=== PATIENT | female | born 1930 | race Caucasian/White ===

== ENCOUNTER 2017-06-04 13:04 | Inpatient (IN) | payer MEDICARE, OTHER ==
[~2017-06-04] VITALS: Ht 162.6 cm; Wt 94.9 kg
[~2017-06-04 13:04] MED LIST: AMLO-147 PO; ASPI81TA3 PO; CALC-176 PO; CHOL500010 PO; DULO30CA47 PO; FURO40TA4 PO; GABA100C14 PO; HIPR1 PO; HYDR-906 PO; INSU100I31 SQ; LINA290C PO; LIRA0.6P SQ; METO2.5T12 PO; MIRA50TA PO; NALO25TA PO; NEBI5TAB9 PO; NIT4 SL; NOVO3I SC; OMEP20CA16 PO; POTA20TA96 PO
[2017-06-04] MEDS ORDERED: CEFEPIME 2GM/50 ML (PMX) 50 ML IVPB STA (14:52)
[2017-06-04] MEDS ORDERED: SODIUM CHLORIDE 0.9% 1L BAG IV* STA (14:52)
[2017-06-04] MEDS ORDERED: VANCOMYCIN 1 GM (PMX) 250 ML IVPB ONE (15:00)
[2017-06-04] MEDS ORDERED: LACT10SO5 PO (15:21)
[2017-06-04] MEDS ORDERED: BENA10TA48 PO (15:22)
[2017-06-04] MEDS ORDERED: CLON0.2T5 PO (15:23)
[2017-06-04] MEDS ORDERED: ALPR0.254 PO (15:24)
[2017-06-04] MEDS ORDERED: INSU100I31 SQ (15:26)
[2017-06-04 15:28] LABS: BASOPHILS % 0.6 % (0.0-2.0); EOSINOPHILS # 0.2 10^3/ul (0.0-0.5); EOSINOPHILS % 3.5 % (0.0-7.0); HEMATOCRIT 37.1 % (37.0-47.0); HEMOGLOBIN 12.1 g/dl (12.0-16.0); LYMPHOCYTES % 37.7 % (15.0-51.0); MEAN CORPUSCULAR HEMOGLOBIN 26.4 pg (29.0-33.0); MEAN CORPUSCULAR HGB CONC 32.6 g/dl (32.0-37.0); MEAN PLATELET VOLUME 10.9 fl (7.4-10.4); MONOCYTE # 0.3 10^3/ul (0.3-0.9); MONOCYTES % 6.3 % (0.0-11.0); NEUTROPHIL # 2.7 10^3/ul (1.6-7.5); NEUTROPHILS % 51.5 % (39.0-77.0); PLATELET COUNT 149 10^3/UL (140-415); RED BLOOD COUNT 4.58 10^6/ul (4.20-5.40); RED CELL DISTRIBUTION WIDTH 14.8 % (11.5-14.5); WHITE BLOOD COUNT 5.2 10^3/ul (4.8-10.8)
[2017-06-04 15:43] LABS: ADD UMIC YES; INR 1.02; PROTIME 13.4 Sec (12.2-14.2); UR ASCORBIC ACID NEGATIVE (NEGATIVE); UR BACTERIA MODERATE /HPF (NONE SEEN); UR BILIRUBIN (Dip) NEGATIVE (NEGATIVE); UR BLOOD (Dip) 1+ mg/dL (NEGATIVE); UR CLARITY CLOUDY (CLEAR); UR COLOR YELLOW (YELLOW); UR GLUCOSE (Dip) 1+ mg/dL (NEGATIVE); UR KETONES (Dip) NEGATIVE (NEGATIVE); UR LEUKOCYTE ESTERASE (Dip) 3+ Leu/ul (NEGATIVE); UR NITRITE (Dip) NEGATIVE (NEGATIVE); UR RBC 8 /HPF (0-5); UR SPECIFIC GRAVITY (Dip) 1.014 (1.003-1.030); UR TOTAL PROTEIN (Dip) 2+ mg/dl (NEGATIVE); UR UROBILINOGEN (Dip) 1+ mg/dL (NEGATIVE)
[2017-06-04 15:44] LABS: PARTIAL THROMBOPLASTIN TIME 32.2 Sec (25.0-35.0)
[2017-06-04 15:48] LABS: LACTIC ACID 1.5 mmol/L (0.5-2.0)
[2017-06-04 15:50] LABS: ALANINE AMINOTRANSFERASE 30 IU/L (13-69); ALBUMIN 3.2 g/dl (3.3-4.9); ALBUMIN/GLOBULIN RATIO 0.78; ALKALINE PHOSPHATASE 101 IU/L (42-121); ANION GAP 10 (8-16); ASPARTATE AMINO TRANSFERASE 29 IU/L (15-46); BILIRUBIN,INDIRECT 0.3 mg/dl (0-1.1); BILIRUBIN,TOTAL 0.3 mg/dl (0.2-1.3); BLOOD UREA NITROGEN 14 mg/dl (7-20); CALCIUM 8.8 mg/dl (8.4-10.2); CARBON DIOXIDE 29 mmol/L (21-31); CHLORIDE 103 mmol/L (97-110); GLUCOSE 247 mg/dl (70-220); POTASSIUM 4.4 mmol/L (3.5-5.1); SODIUM 138 mmol/L (135-144); TOTAL PROTEIN 7.3 g/dl (6.1-8.1)
[2017-06-04 16:01] LABS: TROPONIN-I < 0.012 ng/ml (0.00-0.12)
--- NOTE | 2017-06-04 16:05 | RADRPT ---
PROCEDURE: CT Brain without contrast. CLINICAL INDICATION: Acute mental status changes TECHNIQUE: A CT of the brain was performed on a [employer] 64-slice CT scanner utilizing axial imaging from the skull base through the vertex without IV contrast. Multiplanar reformatted images were made. Images were reviewed on a PACS workstation. The CTDIvol is 44.68 mGy and the DLP is 720 .23 mGycm. One of the following 3 does reduction techniques were used during this CT examination: 1) Automated exposure control 2) Adjustment of the mA +/- kV according to patient size or 3) Use of iterative reconstruction technique COMPARISON: 08/17/2016 CT brain FINDINGS: There is no intracranial hemorrhage, mass effect, or midline shift. No extra-axial fluid collection is seen. The ventricles and sulci are age appropriate. Mild diffuse volume loss is present. Mild de creased attenuation is present in the bilateral centrum semiovale and periventricular white matter c ompatible with mild chronic microvascular ischemic disease. Again noted in the right sylvian fissure is a focus of fatty attenuation measuring 8 mm AP by 10 mm transverse by 7 mm in superior inferior dimensions. 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 Mild vascular calcifications are present of the bilateral intracranial internal carotid ar teries and the vertebral arteries. The visualized scalp and calvarium are normal. The bilateral orbits are normal. The bilateral parana weston sinuses, mastoid air cells and middle ear cavities are clear. IMPRESSION: 1. No evidence of acute intracranial hemorrhage, infarcts, or acute intracranial pathology. 2. Stable right sylvian fissure intracranial lipoma measuring 8 mm AP by 10 mm transverse by 7 mm i n superior inferior dimensions. 3. Mild chronic microvascular ischemic disease and diffuse volume loss. 4. Mild atherosclerotic vascular disease RPTAT: HDC .Suha Kinsey MD, Date Time Electronically viewed and signed by .Suha Kinsey MD, MD on 06/04/2017 16:05 .C/
--- NOTE | 2017-06-04 16:29 | RADRPT ---
PROCEDURE: XR Chest 1 view. CLINICAL INDICATION: Shortness of breath. TECHNIQUE: AP views of the chest were obtained. COMPARISON: August 24, 2016 FINDINGS: The heart is large. Calcified atherosclerosis is noted in the aorta. Atelectasis is noted at the reginaldo ng bases. No consolidations are identified. No pneumothorax is seen. Osseous structures are intac t. IMPRESSION: Cardiomegaly with calcified atherosclerosis in the aorta. Atelectasis at the lung bases. RPTAT: AA .Raffi Boyd MD, Date Time Electronically viewed and signed by .Raffi Boyd MD, on 06/04/2017 16:29 .P/
[2017-06-04] MEDS ORDERED: LACTULOSE 30ML CUP PO ONE (17:30)
--- NOTE | 2017-06-04 18:51 | ERA ---
ER Documentation Chief Complaint Date/Time DATE: 06/04/17 TIME: 18:48 Chief Complaint left flank pain with dysuria x 4 days, more aloc than normal, poc glu 184 HPI Patient is a 86-year-old female with diabetes and UTI who presents with altered mental status. The patient is confused and weak diffusely per the family. This started 3-4 days ago. The patient has a history of urine infection in the past. Upon review of old medical records the patient has multiple visits with admissions. The patient's primary doctor is Dr. Ochoa. Please note the history and physical exam is limited given the patient's altered mental status. ROS All systems reviewed and are negative except as per history of present illness. Medications Home Meds Active Scripts Liraglutide (Victoza 2-Migue) 0.6 Mg/0.1 Ml Pen.injctr, 1.8 MG SQ QAM for 30 Days , SYR Prov:ARMIDA BARRETT MD 08/27/16 Reported Medications Insulin Degludec (Tresiba Flextouch U-100) 100 Unit/1 Ml Insuln.pen, 46 UNIT SQ QHS 06/04/17 Alprazolam* (Alprazolam*) 0.25 Mg Tablet, 0.25 MG PO NEEDED Y for ANXIETY, TAB 06/04/17 Clonidine Hcl* (Clonidine Hcl*) 0.2 Mg Tablet, 0.2 MG PO QHS Y for HTN, TAB NEEDED 06/04/17 Benazepril Hcl* (Benazepril Hcl*) 10 Mg Tablet, 10 MG PO DAILY for NEEDED, # 30 TAB 06/04/17 Lactulose* (Lactulose*) 10 Gm/15 Ml Solution, 40 ML PO TID, ML 06/04/17 Mirabegron (Myrbetriq) 50 Mg Tab.er.24h, 50 MG PO DAILY, TAB 07/24/16 Hydrocodone/Acetaminophen (Cook 5-325 Tablet) 1 Each Tablet, 1 EACH PO Q6, TAB 07/24/16 Potassium Chloride* (Potassium Chloride*) 20 Meq Tablet.er, 40 MEQ PO BID, TAB.SA 05/17/16 Calcium Cmb 2-Mag Cmb 12-Vit D3 (Calcium 500) 1 Each Tablet, 1 TAB PO TID, TAB 05/17/16 Duloxetine Hcl* (Duloxetine Hcl*) 30 Mg Capsule.dr, 30 MG PO DAILY, #30 CAP 05/17/16 Metolazone* (Metolazone*) 2.5 Mg Tablet, 2.5 MG PO DAILY, TAB 05/17/16 Furosemide* (Furosemide*) 40 Mg Tablet, 40 MG PO DAILY, TAB 05/17/16 Aspirin* (Aspirin* Chew) 81 Mg Tab.chew, 81 MG PO DAILY, TAB.CHEW 05/17/16 Nitroglycerin* (Nitrostat*) 0.4 Mg Tab.subl, 0.4 MG SL Q5MIN Y for CHEST PAIN, BOTTLE 05/17/16 Omeprazole* (Omeprazole*) 20 Mg Capsule.dr, 20 MG PO AC BREAKFAST, #60 CAP 05/17/16 Naloxegol Oxalate (Movantik) 25 Mg Tablet, 25 MG PO DAILY, TAB 05/17/16 Methenamine Hippurate* (Hiprex*) 1 Gm Tab, 1 GM PO DAILY, TAB 05/17/16 Insulin Aspart* (Novolog Insulin Pen*) 100 Unit/Ml Soln, 0 SC .SLIDING SCALE AC , EA 05/17/16 Cholecalciferol (Vitamin D3) 5,000 Unit Tablet, 5000 UNIT PO DAILY, TAB 05/17/16 Amlodipine Besylate* (Amlodipine Besylate*) 10 Mg Tablet, 10 MG PO DAILY, #30 TAB 05/17/16 Nebivolol* (Bystolic*) 5 Mg Tab, 5 MG PO DAILY, #30 TAB 05/17/16 Gabapentin* (Gabapentin*) 100 Mg Capsule, 100 MG PO TID, #90 CAP 05/17/16 Discontinued Reported Medications Linaclotide (LINZESS) 290 Mcg Capsule, 290 MCG PO DAILY, #30 CAP 05/17/16 Discontinued Scripts Insulin Degludec (Tresiba Flextouch U-100) 100 Unit/1 Ml Insuln.pen, 40 UNIT SQ QHS for 30 Days Prov:ARMIDA BARRETT MD 08/27/16 Allergies Allergies: Coded Allergies: No Known Allergies (Verified Allergy, Unknown, 06/04/17) PMhx/Soc History of Surgery: Yes Anesthesia Reaction: No Hx Neurological Disorder: No Hx Respiratory Disorders: No Hx Cardiac Disorders: No Hx Psychiatric Problems: Yes (Depression) Hx Miscellaneous Medical Probl: Yes Hx Alcohol Use: No Hx Substance Use: No Hx Tobacco Use: No Smoking Status: Never smoker FmHx Family History: diabetes Physical Exam Vitals Vital Signs Date Time Temp Pulse Resp B/P Pulse Ox O2 Delivery O2 Flow Rate FiO2 06/04/17 13:12 99.0 87 18 182/74 95 Physical Exam Const: Confused Head: Atraumatic Eyes: Normal Conjunctiva ENT: Normal External Ears, Nose and Mouth. Neck: Full range of motion..~ No meningismus. Resp: Clear to auscultation bilaterally Cardio: Regular rate and rhythm, no murmurs Abd: Soft, non tender, non distended. Normal bowel sounds Skin: No petechiae or rashes Back: No midline or flank tenderness Ext: No cyanosis, or edema Neur: Awake but confused Result Diagram: 06/04/17 1505 06/04/17 1505 Results 24 hrs Laboratory Tests Test 06/04/17 13:16 06/04/17 15:05 06/04/17 15:10 Bedside Glucose 184mg/dL 230mg/dL White Blood Count 5.210^3/ul Red Blood Count 4.5810^6/ul Hemoglobin 12.1g/dl Hematocrit 37.1% Mean Corpuscular Volume 81.0fl Mean Corpuscular Hemoglobin 26.4pg Mean Corpuscular Hemoglobin Concent 32.6g/dl Red Cell Distribution Width 14.8% Platelet Count 58997^3/UL Mean Platelet Volume 10.9fl Neutrophils % 51.5% Lymphocytes % 37.7% Monocytes % 6.3% Eosinophils % 3.5% Basophils % 0.6% Nucleated Red Blood Cells % 0.0/100WBC Neutrophils # 2.710^3/ul Lymphocytes # 2.010^3/ul Monocytes # 0.310^3/ul Eosinophils # 0.210^3/ul Basophils # 0.010^3/ul Nucleated Red Blood Cells # 0.010^3/ul Prothrombin Time 13.4Sec Prothrombin Time Ratio 1.0 INR International Normalized Ratio 1.02 Activated Partial Thromboplast Time 32.2Sec Urine Color YELLOW Urine Clarity CLOUDY Urine pH 7.0 Urine Specific [place] 1.014 Urine Ketones NEGATIVEmg/dL Urine Nitrite NEGATIVEmg/dL Urine Bilirubin NEGATIVEmg/dL Urine Urobilinogen 1+mg/dL Urine Leukocyte Esterase 3+Hyun/ul Urine Microscopic RBC 8/HPF Urine Microscopic WBC 93/HPF Urine Bacteria MODERATE/HPF Urine Hemoglobin 1+mg/dL Urine Glucose 1+mg/dL Urine Total Protein 2+mg/dl Sodium Level 138mmol/L Potassium Level 4.4mmol/L Chloride Level 103mmol/L Carbon Dioxide Level 29mmol/L Anion Gap 10 Blood Urea Nitrogen 14mg/dl Creatinine 0.80mg/dl Glucose Level 247mg/dl Lactic Acid Level 1.5mmol/L Calcium Level 8.8mg/dl Total Bilirubin 0.3mg/dl Direct Bilirubin 0.00mg/dl Indirect Bilirubin 0.3mg/dl Aspartate Amino Transf (AST/SGOT) 29IU/L Alanine Aminotransferase (ALT/SGPT) 30IU/L Alkaline Phosphatase 101IU/L Ammonia 53umol/l Troponin I < 0.012ng/ml Total Protein 7.3g/dl Albumin 3.2g/dl Globulin 4.10g/dl Albumin/Globulin Ratio 0.78 Current Medications Medications (Trade) Dose Ordered Sig/Karri Route PRN Reason Start Time Stop Time Status Last Admin Dose Admin Sodium Chloride 2820 ml 2,820 ml BOLUS OVER 2 HOURS STAT IV* 06/04/17 14:52 06/04/17 14:54 DC 06/04/17 16:09 Cefepime HCl 50 ml @ 100 mls/hr ONCE STAT IVPB 06/04/17 14:52 06/04/17 15:21 DC 06/04/17 16:09 Vancomycin HCl (Vancocin) 250 ml @ 125 mls/hr ONCE ONCE IVPB 06/04/17 15:00 06/04/17 16:59 DC 06/04/17 15:00 Lactulose (Enulose) 20 gm ONCE ONCE PO 06/04/17 17:30 06/04/17 17:31 DC 06/04/17 18:03 Procedures/MDM CT brain shows no intracranial mass or hemorrhage per radiology. She is an 86-year-old female presents with acute encephalopathy. She has ammonia level of 53 which may be causing encephalopathy from hepatic encephalopathy and she also has acute cystitis which also could contribute to her confusion. The patient was given broad-spectrum antibiotics with vancomycin and cefepime. She was given a 30 mL/kg fluid bolus for fluid resuscitation. She also has hyperglycemia but no signs of diabetic ketoacidosis. She was afebrile with a normal white blood cell count. The patient will be admitted to the care of Dr. Ochoa or whoever is covering as this is her primary doctor. The patient will need admission to a medical surgical bed. The patient was given lactulose for the hepatic encephalopathy. At this time she does not have 2 SIRS criteria and therefore I doubt sepsis. Critical Care: Time: 35 minutes excluding all billable procedures. Treatments/Evaluations: Close monitoring and treatment of unstable vital signs, cardiorespiratory, and neurologic status, while maintaining tight balance of fluid, respiratory, and cardiac interventions. Departure Diagnosis: Primary Impression: Cystitis Additional Impressions: Altered mental status Qualified Code: R41.82 - Altered mental status, unspecified altered mental status type Hepatic encephalopathy Hyperglycemia Condition: JESSICA Jeong MD Jun 04, 2017 18:51
[2017-06-04] MEDS ORDERED: ACETAMINOPHEN 325 MG TAB PO PRN (19:30)
[2017-06-04] MEDS ORDERED: ONDANSETRON 4 MG INJ IV PRN (19:30)
[2017-06-04 20:05] VITALS: TEMP 98.7
[2017-06-05 00:52] VITALS: Ht 162.6 cm; Wt 94.9 kg
[2017-06-05] MEDS ORDERED: VANCOMYCIN IV PER PHARMACY XX SCH ×2 (01:30→06:00)
[2017-06-05] MEDS ORDERED: ALPRAZOLAM 0.25 MG TAB PO PRN (01:30)
[2017-06-05] MEDS ORDERED: NITROGLYCERIN (SL) 0.4 MG TAB SL PRN (01:30)
[2017-06-05] MEDS ORDERED: HYDROCODONE/APAP (5/325) TAB PO PRN (01:30)
[2017-06-05 01:31] VITALS: BP 190/81; PULSE 86; RESP 17
[2017-06-05] MEDS: ACCU-CHEK XX SCH ×2 (02:00)
[2017-06-05] MEDS ORDERED: GLUCOSE GEL 15 GRAM TUBE PO PRN ×2 (03:30)
[2017-06-05] MEDS ORDERED: GLUCAGON 1 MG INJ IM PRN (03:30)
[2017-06-05] MEDS ORDERED: DEXTROSE 50% 50 ML SYRINGE IV PRN ×2 (03:30)
[2017-06-05] MEDS ORDERED: GLUCOSE GEL 15 GRAM TUBE BUCCAL PRN (03:30)
[2017-06-05 05:30] LABS: BASOPHILS % 0.6 % (0.0-2.0); EOSINOPHILS # 0.2 10^3/ul (0.0-0.5); EOSINOPHILS % 3.9 % (0.0-7.0); HEMATOCRIT 34.5 % (37.0-47.0); LYMPHOCYTES # 1.9 10^3/ul (0.8-2.9); LYMPHOCYTES % 40.6 % (15.0-51.0); MEAN CORPUSCULAR HEMOGLOBIN 26.1 pg (29.0-33.0); MEAN CORPUSCULAR HGB CONC 31.9 g/dl (32.0-37.0); MEAN CORPUSCULAR VOLUME 81.9 fl (82.0-101.0); MEAN PLATELET VOLUME 10.5 fl (7.4-10.4); MONOCYTE # 0.3 10^3/ul (0.3-0.9); MONOCYTES % 7.3 % (0.0-11.0); NEUTROPHIL # 2.2 10^3/ul (1.6-7.5); NEUTROPHILS % 47.4 % (39.0-77.0); PLATELET COUNT 116 10^3/UL (140-415); RED BLOOD COUNT 4.21 10^6/ul (4.20-5.40); WHITE BLOOD COUNT 4.7 10^3/ul (4.8-10.8)
[2017-06-05 05:50] LABS: ALBUMIN 2.5 g/dl (3.3-4.9); ALBUMIN/GLOBULIN RATIO 0.67; BILIRUBIN,INDIRECT 0.6 mg/dl (0-1.1); BILIRUBIN,TOTAL 0.6 mg/dl (0.2-1.3); CALCIUM 8.3 mg/dl (8.4-10.2); CREATININE 0.69 mg/dl (0.44-1.00); MAGNESIUM 1.5 mg/dl (1.7-2.5); PHOSPHORUS 3.4 mg/dl (2.5-4.9); POTASSIUM 3.6 mmol/L (3.5-5.1); TOTAL PROTEIN 6.2 g/dl (6.1-8.1)
[2017-06-05] MEDS: PANTOPRAZOLE (EC) 40 MG TAB PO SCH (06:07)
[2017-06-05 06:08] VITALS: BP 137/64; PULSE 64; RESP 19
[2017-06-05 08:06] VITALS: BP 143/61; RESP 18
[2017-06-05] MEDS: INSULIN ASPART [NOVOLOG] 3 ML PEN SC SCH ×4 (08:15→21:07)
[2017-06-05] MEDS: METHENAMINE 1 GM TAB PO SCH (08:29)
[2017-06-05] MEDS: AMLODIPINE 10 MG TAB PO SCH (08:30)
[2017-06-05] MEDS: CHOLECALCIFEROL 1,000 UNIT TAB PO SCH (08:30)
[2017-06-05] MEDS: DULOXETINE 30 MG CAP DR PO SCH (08:31)
[2017-06-05] MEDS: LACTULOSE 30ML CUP PO SCH ×3 (08:31→20:56)
[2017-06-05] MEDS: CALCIUM/VITAMIN D (500/200) TAB PO SCH ×3 (08:31→20:56)
[2017-06-05] MEDS: METOLAZONE 2.5 MG TAB PO SCH (08:31)
[2017-06-05] MEDS: NEBIVOLOL 5 MG TAB PO SCH (08:31)
[2017-06-05] MEDS: FUROSEMIDE 40 MG TAB PO SCH (08:31)
[2017-06-05] MEDS: POTASSIUM CHLORIDE (SR) 20 MEQ TAB PO SCH ×2 (08:32→20:56)
[2017-06-05] MEDS: BENAZEPRIL 10 MG TAB PO SCH (08:32)
[2017-06-05] MEDS: GABAPENTIN 100 MG CAP PO SCH ×3 (08:32→20:56)
[2017-06-05] MEDS: ASPIRIN 81 MG TAB PO SCH (08:33)
[2017-06-05] MEDS: VANCOMYCIN 1.5 GM in SOD CHLORIDE 0.9% 250 ML IVPB SCH (08:51)
--- NOTE | 2017-06-05 08:58 | HP ---
DATE OF ADMISSION: 06/04/2017 CHIEF COMPLAINT: Altered mental status. HISTORY OF PRESENT ILLNESS: The patient is an 85-year-old female with a past medical history of diabetes, hypertension, cholelithiasis, morbid obesity, cirrhosis, chronic left ankle fracture, has history of venous insufficiency presented to [facility] with altered mental status. The patient according to family, was noted to have increased lethargy, confusion and weakness. As a result, she came to the emergency room. Upon arrival, the patient had urinalysis that showed positive nitrates. The patient in the emergency room was started on antibiotics for UTI. The patient also had a CT scan of the brain, which showed no acute findings. There has been no reports of any hemoptysis, hematemesis, or hematochezia. PAST MEDICAL HISTORY: As stated above. History of: 1. Hypertension. 2. Diabetes. 3. Cirrhosis. 4. GERD. 5. Neuropathy. 6. Obesity. 7. Depression. 8. History of left trimalleolar fracture. 9. Venous insufficiency. PAST SURGICAL HISTORY: Status post left ankle ORIF. FAMILY HISTORY: No family history of kidney disease or heart disease. SOCIAL HISTORY: Does not drink, smoke, or do drugs. MEDICATIONS: Reviewed, reconciled. REVIEW OF SYSTEMS: Fourteen point review of systems was conducted. Pertinent positives stated in HPI, otherwise negative. PHYSICAL EXAMINATION: VITAL SIGNS: Blood pressure 150/76, respirations 18, pulse 72, temperature 98.6. HEENT: Head is normocephalic. NECK: Supple. HEART: Regular rate. LUNGS: Diminished breath sounds at the base. ABDOMEN: Soft, nontender to palpation. No rebound or guarding. EXTREMITIES: Negative for clubbing, cyanosis. No edema. DERMATOLOGIC: No rashes. MUSCULOSKELETAL: No joint effusion. NEUROLOGIC: General weakness. No obvious focal deficits. LABORATORY DATA: White count 4.7, hemoglobin 9.0, hematocrit 34.5, platelet count is 116, sodium 139, BUN 11, creatinine 0.89, magnesium 1.5. ASSESSMENT AND PLAN: This is an 86-year-old female who presents with: 1. Acute encephalopathy, etiology is secondary to toxic metabolic due to urinary infection. The patient's mental status has improved after initiating intravenous antibiotics. We will continue current treatment plan. 2. Urinary tract infection. Possible sepsis. We will continue current antibiotic regimen. Follow up cultures. We will place an Infectious Disease consult for evaluation. 3. History of recurrent urinary tract infections. We will place a urology consult for further evaluation. 4. Hypomagnesemia. Replete with magnesium sulfate. 5. Diabetes. Continue current insulin regimen. 6. Hypertension. Continue current blood pressure regimen. 7. History of cirrhosis. Continue current medical management. Follow up with gastrointestinal. 8. Morbid obesity. Continue dietary modification. 9. Chronic venous insufficiency. Continue to monitor. 10. History of chronic left ankle fracture. Continue to monitor. 11. Neuropathy. Continue Neurontin. 12. Depression. Continue current treatment plan. 13. Anemia. Monitor H and H levels. 14. History of arrhythmia. Continue current medical management. 15. Gastrointestinal and deep venous thrombosis prophylaxis. 16. General debility. Continue physical therapy. Dictated By: Alex Ochoa DO /venkat/roger /Document#: [id number]
[2017-06-05] MEDS ORDERED: MAGNESIUM SULFATE 2 GM/50 ML 50 ML IVPB ONE (09:00)
[2017-06-05 15:13] VITALS: BP 154/68; RESP 18
[2017-06-05] MEDS: CEFEPIME 1GM/50 ML (PMX) 50 ML IVPB SCH (16:19)
[2017-06-05 19:54] VITALS: BP 167/75; RESP 18
[2017-06-05 20:45] VITALS: BP 171/85
[2017-06-05] MEDS ORDERED: INSULIN DEGLUDEC SQ SCH (21:00)
--- NOTE | 2017-06-05 21:28 | CONS ---
DATE OF ADMISSION: 06/04/2017 DATE OF CONSULTATION: 06/05/2017 REASON FOR CONSULTATION: Antibiotic management. HISTORY OF PRESENT ILLNESS: Munira Jenkins is an 86-year-old female who comes in with altered mental status and is being seen for antibiotic management. PAST PROBLEMS: Include: 1. Hypertension. 2. Adult-onset diabetes mellitus. 3. Cirrhosis of the liver. 4. Cholelithiasis. 5. Morbid obesity. 6. GERD. 7. Neuropathy. 8. Chronic left ankle fracture. 9. History of venous insufficiency. 10. Depression. 11. Status post left ankle ORIF. Acutely, the patient comes in with altered levels of consciousness with confusion, with weakness and weakness. On admission, her white count was 4.7, H and H of 9 and 34.5, platelet count 116,000. BUN/creatinine 11/0.89. Today. White count is 4.7. A urine showed 3+ leukocyte esterase, 93 white cells per high-powered field. Urine is growing gram-negative rods. Blood cultures are negative. Chest x-ray shows cardiomegaly and atelectasis at the lung bases. Patient was started on cefepime and vancomycin. PAST MEDICAL HISTORY: Operations as outlined. FAMILY HISTORY: Noncontributory. SOCIAL HISTORY: She does not smoke, drink, or abuse drugs. ALLERGIES: NONE TO PENICILLIN, SULFA, OR FOODS. MEDICATION: Per chart. REVIEW OF SYSTEMS: Noncontributory. PHYSICAL EXAMINATION: GENERAL: Patient is an elderly-appearing female, who is confused in no acute distress. VITAL SIGNS: Stable. She is afebrile. SKIN: Without generalized rash. HEENT: Within normal limits. NECK: Supple. Lymph nodes nonpalpable. CHEST: Clear to P and A, with decreased breath sounds at the bases. HEART: Without murmur or gallop. ABDOMEN: Soft, nontender, without organo-splenomegaly or masses. EXTREMITIES: Without cyanosis, clubbing, or edema. RECTAL: Deferred. GENITAL: Deferred. NEUROLOGICAL: No focal neurological abnormalities. IMPRESSION AND PLAN: The patient has urinary tract infection. Would result in acute encephalopathy secondary to toxic metabolic causes. We will continue her on her cefepime and vancomycin until we get the cultures back. We probably can stop the vancomycin tomorrow and tailor the antibiotics accordingly. I will dictate my findings to Dr. Ochoa. I want to thank him for asking us to see this nicholas lady in consultation. Dictated By: Chuy Blair MD JD/venkat/bernice /Document#: [id number]
[2017-06-06 01:56] VITALS: BP 144/66; RESP 18
[2017-06-06] MEDS: ACCU-CHEK XX SCH ×2 (02:49→02:50)
[2017-06-06 05:53] LABS: BASOPHILS % 0.6 % (0.0-2.0); EOSINOPHILS # 0.2 10^3/ul (0.0-0.5); EOSINOPHILS % 4.1 % (0.0-7.0); HEMATOCRIT 33.5 % (37.0-47.0); HEMOGLOBIN 10.9 g/dl (12.0-16.0); LYMPHOCYTES # 1.8 10^3/ul (0.8-2.9); LYMPHOCYTES % 38.8 % (15.0-51.0); MEAN CORPUSCULAR HEMOGLOBIN 26.5 pg (29.0-33.0); MEAN CORPUSCULAR HGB CONC 32.5 g/dl (32.0-37.0); MEAN CORPUSCULAR VOLUME 81.3 fl (82.0-101.0); MEAN PLATELET VOLUME 10.7 fl (7.4-10.4); MONOCYTE # 0.4 10^3/ul (0.3-0.9); NEUTROPHIL # 2.2 10^3/ul (1.6-7.5); NEUTROPHILS % 47.3 % (39.0-77.0); PLATELET COUNT 118 10^3/UL (140-415); RED BLOOD COUNT 4.12 10^6/ul (4.20-5.40); RED CELL DISTRIBUTION WIDTH 14.6 % (11.5-14.5); WHITE BLOOD COUNT 4.7 10^3/ul (4.8-10.8)
[2017-06-06] MEDS: PANTOPRAZOLE (EC) 40 MG TAB PO SCH (06:08)
[2017-06-06 06:29] LABS: CALCIUM 8.4 mg/dl (8.4-10.2); CREATININE 0.76 mg/dl (0.44-1.00); MAGNESIUM 1.9 mg/dl (1.7-2.5); PHOSPHORUS 3.2 mg/dl (2.5-4.9); POTASSIUM 4.3 mmol/L (3.5-5.1)
[2017-06-06 07:20] VITALS: BP 139/63; RESP 20
[2017-06-06] MEDS ORDERED: MIRABEGRON 50 MG XX SCH (08:00)
[2017-06-06] MEDS ORDERED: [UNRECOGNIZED DRUG - OTHER] XX SCH (08:00)
[2017-06-06] MEDS ORDERED: [UNRECOGNIZED DRUG - OTHER] XX SCH (08:00)
[2017-06-06] MEDS: INSULIN ASPART [NOVOLOG] 3 ML PEN SC SCH ×4 (08:15→21:40)
[2017-06-06] MEDS: CEFEPIME 1GM/50 ML (PMX) 50 ML IVPB SCH (08:23)
[2017-06-06] MEDS: CALCIUM/VITAMIN D (500/200) TAB PO SCH ×3 (08:25→21:28)
[2017-06-06] MEDS: VANCOMYCIN 1.5 GM in SOD CHLORIDE 0.9% 250 ML IVPB SCH (08:25)
[2017-06-06] MEDS: LACTULOSE 30ML CUP PO SCH ×3 (08:25→21:27)
[2017-06-06] MEDS: ASPIRIN 81 MG TAB PO SCH (08:26)
[2017-06-06] MEDS: POTASSIUM CHLORIDE (SR) 20 MEQ TAB PO SCH ×2 (08:26→21:28)
[2017-06-06] MEDS: FUROSEMIDE 40 MG TAB PO SCH (08:26)
[2017-06-06] MEDS: METOLAZONE 2.5 MG TAB PO SCH (08:26)
[2017-06-06] MEDS: DULOXETINE 30 MG CAP DR PO SCH (08:26)
[2017-06-06] MEDS: GABAPENTIN 100 MG CAP PO SCH ×3 (08:27→21:28)
[2017-06-06] MEDS: BENAZEPRIL 10 MG TAB PO SCH (08:27)
[2017-06-06] MEDS: AMLODIPINE 10 MG TAB PO SCH (08:27)
[2017-06-06] MEDS: METHENAMINE 1 GM TAB PO SCH (08:27)
[2017-06-06] MEDS: NEBIVOLOL 5 MG TAB PO SCH (08:28)
[2017-06-06] MEDS ORDERED: [UNRECOGNIZED DRUG - OTHER] XX SCH (08:30)
[2017-06-06] MEDS: CHOLECALCIFEROL 1,000 UNIT TAB PO SCH (12:24)
--- NOTE | 2017-06-06 13:20 | PN ---
DATE: 06/06/2017 SUBJECTIVE DATA: The patient is stable. No events overnight. No fevers, chills, nausea, vomiting. No shortness of breath. OBJECTIVE DATA: VITAL SIGNS: Blood pressure is 139/63, pulse 58, respirations 20, temperature 98.7. HEENT: Head is normocephalic. NECK: Supple. HEART: Regular rate. LUNGS: Diminished breath sounds at the base. ABDOMEN: Soft, nontender to palpation. No rebound or guarding. EXTREMITIES: Negative for clubbing, cyanosis. Trace edema. DERMATOLOGIC: Clean. No rashes. MUSCULOSKELETAL: No joint effusions. NEUROLOGIC: No change in exam. MEDICATIONS: The patient's medications have been reviewed. LABORATORY AND DIAGNOSTIC DATA: Shows a white count 4.7, hemoglobin 10.9, hematocrit 33.5, platelet count 118, sodium 137, potassium 4.3, BUN 13, creatinine 0.76. Patient's urine cultures growing out E. coli. ASSESSMENT AND PLAN: 1. Acute encephalopathy, etiology is toxic metabolic secondary to urinary tract infection. The patient's mental status is improving. Continue to monitor. 2. Urinary tract infection. Possible sepsis. Continue current antibiotic regimen. Follow up Infectious Disease. 3. History of recurrent urinary tract infections. We will place a Urology consult for evaluation. 4. Hypomagnesemia. Continue to monitor and replete. 5. Hypertension. Continue current blood pressure regimen. 6. History of cirrhosis. Continue medical management. 7. Morbid obesity. Continue dietary modification. 8. Chronic venous insufficiency. Continue to monitor. 9. History of chronic left ankle fracture. Continue to monitor. 10. Neuropathy. Continue Neurontin. 11. Depression. Continue current treatment plan. 12. Anemia. Monitor H and H levels. 13. History of arrhythmia. Continue current medical management. 14. General debility. Continue physical therapy. 15. Gastrointestinal and deep venous thrombosis prophylaxis. Dictated By: Alex Ochoa DO /venkat/roger /Document#: [id number]
[2017-06-06 14:50] VITALS: BP 146/67; RESP 20
--- NOTE | 2017-06-06 14:52 | PN ---
DATE: 06/06/2017 SUBJECTIVE DATA: No acute changes overnight. The patient is awake, looks comfortable. Denies pain. Family at bedside. She is afebrile. LABORATORY AND DIAGNOSTIC DATA: WBC today 4.7, H and H 10.9 and 33.5, platelets 118, no shift, no bands. BUN 13, creatinine 0.76. Chest x-ray on admission revealed atelectasis at the lung bases. MICROBIOLOGY: Urine culture grew E coli, ESBL. ANTIMICROBIALS: The patient's is antibiotics were switched to Invanz this morning. She is also on IV vancomycin. PHYSICAL EXAMINATION: GENERAL: This is an obese, well developed, elderly woman, who is alert, in no distress. HEENT: Head atraumatic, normocephalic. Sclerae anicteric. Buccal mucosa pink. NECK: Obese. CHEST: Chest rise symmetrical. Breath sounds diminished at the bases. HEART: S1, S2. ABDOMEN: Soft, bowel sounds present. EXTREMITIES: Without cyanosis. ASSESSMENT: 1. Resolving encephalopathy. 2. Escherichia coli extended-spectrum beta-lactamase urinary tract infection. 3. Obesity. 4. Diabetes. 5. Liver cirrhosis. PLAN: The patient remains stable. We are going to discontinue vancomycin. Continue her on Invanz. Monitor postvoid residuals. Dictated By: Swetha Colin NP /venkat/manny /Document#: [id number]
[2017-06-06] MEDS: ERTAPENEM SODIUM 1 GM in SOD CHLORIDE 0.9% 100 ML IVPB SCH (14:57)
[2017-06-06 20:00] VITALS: BP 170/75; RESP 20
[2017-06-06 21:48] VITALS: BP 142/63; PULSE 71
[2017-06-07] MEDS: ACCU-CHEK XX SCH ×2 (01:41→01:42)
[2017-06-07 02:00] VITALS: BP 139/57; RESP 20
--- NOTE | 2017-06-07 03:19 | CONS ---
DATE OF ADMISSION: 06/04/2017 DATE OF CONSULTATION: 06/06/[address] Ochoa: Thank you for asking me to see this patient in urological consultation. This is an 86-year-old female, who is bedridden and obese and who presented to the hospital because of altered mental status. The workup showed that she does have urinary tract infection with E coli ESBL, and therefore, a urological consultation was requested. The patient is bedridden and she does urinate in bed all the time. The patient does have multiple medical problems that include a history of hypertension and diabetes mellitus, history of cirrhosis, gastroesophageal reflux disease, peripheral neuropathy, and obesity, a history of depression and fracture of her left lower extremity at the ankle area and history of venous insufficiency. PAST SURGICAL HISTORY: For the ankle fracture surgery. SOCIAL HISTORY: She does not smoke. Does not drink any alcohol and there is no history of drug abuse. ALLERGIES: THE PATIENT HAS NO KNOWN DRUG ALLERGIES. PHYSICAL EXAMINATION: VITAL SIGNS: Reveals an elderly female, who weighs about 95 kg. She is 64 inches tall. Temperature is 98.8, pulse is 60, respirations 20, blood pressure 146/67. HEENT: The head and neck are unremarkable. There is no cervical adenopathy. The neck is supple. LUNGS: The patient has normal air movement. ABDOMEN: Very obese. There is no abdominal mass palpable. She does have some bruises from the injection of the insulin int her abdominal wall. PELVIC: Revealed no discharge and no tenderness and no bleeding. GENITOURINARY: The patient is incontinent. LOWER EXTREMITIES: She does have discoloration of both lower extremities from poor venous circulation. LABORATORY: Her CBC shows a white count of 4.7, hemoglobin 10.9, hematocrit 33.5. BUN is 13, creatinine 0.76, sodium 137, potassium 4.3, chloride 105, CO2 29. PT 13.4, INR 1.02. The urine culture again showed E coli ESBL. Blood cultures have been negative. The patient did have previously a CT scan of the abdomen and pelvis back in 2016 and that did not show any renal pathology and there were no kidney stones. IMPRESSION: Urinary tract infection with Escherichia coli extended-spectrum beta-lactamase. The recommendation is to continue her antibiotic and one could just checked if she does have a high postvoid residual, which then may be secondary to her diabetes and which may facilitate the persistence of the urinary tract infection and recurrent infections. RECOMMENDATIONS: I would recommend that if the nurse could check when she urinates and immediately do a straight cath to check her postvoid residual. Dictated By: Reji Ch MD /venkat/rajan /Document#: [id number]
[2017-06-07] MEDS: PANTOPRAZOLE (EC) 40 MG TAB PO SCH (05:16)
[2017-06-07 07:30] VITALS: BP 145/65; RESP 16
[2017-06-07] MEDS: INSULIN DEGLUDEC XX SCH ×3 (08:00→16:00)
[2017-06-07] MEDS: [UNRECOGNIZED DRUG - OTHER] XX SCH ×3 (08:00→16:00)
[2017-06-07] MEDS: INSULIN ASPART [NOVOLOG] 3 ML PEN SC SCH ×4 (08:33→21:48)
[2017-06-07] MEDS: AMLODIPINE 10 MG TAB PO SCH (08:56)
[2017-06-07] MEDS: POTASSIUM CHLORIDE (SR) 20 MEQ TAB PO SCH ×2 (08:57→20:58)
[2017-06-07] MEDS: METHENAMINE 1 GM TAB PO SCH (08:57)
[2017-06-07] MEDS: CALCIUM/VITAMIN D (500/200) TAB PO SCH ×3 (08:58→20:57)
[2017-06-07] MEDS: FUROSEMIDE 40 MG TAB PO SCH (08:59)
[2017-06-07] MEDS: CHOLECALCIFEROL 1,000 UNIT TAB PO SCH (08:59)
[2017-06-07] MEDS: GABAPENTIN 100 MG CAP PO SCH ×3 (09:00→20:58)
[2017-06-07] MEDS: METOLAZONE 2.5 MG TAB PO SCH (09:00)
[2017-06-07] MEDS: DULOXETINE 30 MG CAP DR PO SCH (09:01)
[2017-06-07] MEDS: ASPIRIN 81 MG TAB PO SCH (09:01)
[2017-06-07] MEDS: BENAZEPRIL 10 MG TAB PO SCH (09:01)
[2017-06-07] MEDS: NEBIVOLOL 5 MG TAB PO SCH (09:01)
[2017-06-07] MEDS: LACTULOSE 30ML CUP PO SCH ×3 (09:02→20:57)
--- NOTE | 2017-06-07 09:54 | PN ---
DATE: 06/07/2017 SUBJECTIVE DATA: The patient is stable. No events overnight. No fevers, chills, nausea, vomiting. OBJECTIVE DATA: VITAL SIGNS: Blood pressure 145/65, temperature 98.5. Pulse is 58, respirations 16. HEENT: Head is normocephalic. NECK: Supple. HEART: Regular rate. LUNGS: Diminished breath sounds at the base. ABDOMEN: Soft, nontender to palpation. No rebound or guarding. EXTREMITIES: Negative for clubbing, cyanosis. No edema. DERMATOLOGIC: Clean. No rashes. MUSCULOSKELETAL: No joint effusion. NEUROLOGIC: No change in exam. MEDICATIONS: Reviewed. LABORATORY AND DIAGNOSTIC DATA: Reviewed. ASSESSMENT AND PLAN: 1. Acute encephalopathy. Etiology is toxic metabolic secondary to urinary tract infection. The patient's mental status improved. Continue to monitor. 2. Urinary tract infection, extended-spectrum beta-lactamases. Continue IV antibiotics. Follow up with Infectious Disease for length of antibiotic course. 3. History of recurrent urinary tract infections. Appreciate urology's evaluation. Etiology may be secondary to ongoing diabetes. Continue to monitor. Follow up recommendations. 4. Hypomagnesemia. Continue to monitor. 5. Hypertension. Continue current blood pressure regimen. 6. Cirrhosis. Continue medical management. 7. Morbid obesity. Continue dietary modification. 8. Chronic venous insufficiency. 9. History of chronic left ankle fracture. Continue to monitor. 10. Neuropathy. Continue Neurontin. 11. Depression. Continue current treatment plan. 12. Anemia. Monitor H and H levels. 13. Gastrointestinal and deep venous thrombosis prophylaxis. Continue proton pump inhibitor. Sequential leg squeezers. Dictated By: Alex Ochoa DO /venkat/roger /Document#: [id number]
--- NOTE | 2017-06-07 13:44 | CONS ---
Date/Time of Note Date/Time of Note DATE: 06/07/17 TIME: 13:43 Assessment/Plan Assessment/Plan Chief Complaint/Hosp Course SUBJECTIVE DATA: No acute changes overnight. The patient is awake, looks comfortable. Family at bedside. No fever MICROBIOLOGY: Urine culture grew E coli, ESBL. ANTIMICROBIALS: Invanz PHYSICAL EXAMINATION: GENERAL: This is an obese, well developed, elderly woman, who is alert, in no distress. HEENT: Head atraumatic, normocephalic. Sclerae anicteric. Buccal mucosa pink. NECK: Obese. CHEST: Chest rise symmetrical. Breath sounds diminished at the bases. HEART: S1, S2. ABDOMEN: Soft, bowel sounds present. EXTREMITIES: Without cyanosis. ASSESSMENT: 1. Resolving encephalopathy. 2. Escherichia coli extended-spectrum beta-lactamase urinary tract infection. 3. Obesity. 4. Diabetes. 5. Liver cirrhosis. PLAN: The patient remains stable. Continue present care, antibiotics, follow recommendations of consultants, aspiration precautions Problems: Consultation Date/Type/Reason Admit Date/Time Jun 04, 2017 at 19:07 Initial Consult Date Type of Consultation: ID Exam/Review of Systems Vital Signs Vitals Vital Signs Date Time Temp Pulse Resp B/P Pulse Ox O2 Delivery O2 Flow Rate FiO2 06/07/17 07:30 98.5 58 16 145/65 93 06/05/17 01:31 Room Air Intake and Output 06/06/17 06/06/17 06/07/17 15:00 23:00 07:00 Intake Total 1660 ml 700 ml Output Total 400 ml Balance -400 ml 1660 ml 700 ml Results Result Diagram: 06/06/17 0500 06/06/17 0500 Results 24 hrs Laboratory Tests Test 06/06/17 17:31 06/06/17 21:26 06/07/17 01:27 06/07/17 08:22 Bedside Glucose 162 247 H 172 164 Test 06/07/17 12:14 Bedside Glucose 306 H Medications Medications Current Medications Amlodipine Besylate (Norvasc) 10 mg DAILY PO Last administered on 06/07/17 08: 56; Admin Dose 10 MG; Start 06/05/17 at 09:00 Aspirin (Aspirin) 81 mg DAILY PO Last administered on 06/07/17 09:01; Admin Dose 81 MG; Start 06/05/17 at 09:00 Cholecalciferol (Vitamin D) 5,000 unit DAILY PO Last administered on 06/07/17 08:59; Admin Dose 5,000 UNIT; Start 06/05/17 at 09:00 Duloxetine HCl (Cymbalta) 30 mg DAILY PO Last administered on 06/07/17 09:01; Admin Dose 30 MG; Start 06/05/17 at 09:00 Furosemide (Lasix) 40 mg DAILY PO Last administered on 06/07/17 08:59; Admin Dose 40 MG; Start 06/05/17 at 09:00 Gabapentin (Neurontin) 100 mg TID PO Last administered on 06/07/17 09:00; Admin Dose 100 MG; Start 06/05/17 at 09:00 Lactulose (Enulose) 20 gm TID PO Last administered on 06/07/17 09:02; Admin Dose 20 GM; Start 06/05/17 at 09:00 Methenamine (Hiprex) 1 gm DAILY PO Last administered on 06/07/17 08:57; Admin Dose 1 GM; Start 06/05/17 at 09:00 Metolazone (Zaroxolyn) 2.5 mg DAILY PO Last administered on 06/07/17 09:00; Admin Dose 2.5 MG; Start 06/05/17 at 09:00 Miscellaneous Medication (Bystolic) 5 mg DAILY PO Last administered on 09:01; Admin Dose 5 MG; Start 06/05/17 at 09:00 Nitroglycerin (Nitroglycerin (Sl Tab) 0.4 Mg) 0.4 tab [id number] PRN SL CHEST PAIN; Start 06/05/17 at 01:30 Potassium Chloride (Klor-Con 20) 40 meq BID PO Last administered on 06/07/17 08:57; Admin Dose 40 MEQ; Start 06/05/17 at 09:00 Calcium/Vitamin D (Oyster Shell/ Vit-D (500/200)) 1 tab TID PO Last administered on 06/07/17 08:58; Admin Dose 1 TAB; Start 06/05/17 at 09:00 Miscellaneous Information 46 unit QHS SQ ; Start 06/05/17 at 21:00; Status UNV Non-Formulary Medication 1 ea QAM SC ; Start 06/05/17 at 09:00 Non-Formulary Medication 1 ea DAILY PO Last administered on 06/07/17 10:30; Admin Dose 1 EA; Start 06/07/17 at 09:00 Non-Formulary Medication 1 ea DAILY PO Last administered on 06/07/17 10:39; Admin Dose 1 EA; Start 06/05/17 at 09:00 Pantoprazole (Protonix Tab) 40 mg DAILY@06 PO Last administered on 06/07/17 05 :16; Admin Dose 40 MG; Start 06/05/17 at 06:00 Alprazolam (Xanax) 0.25 mg Q8H PRN PO ANXIETY; Start 06/05/17 at 01:30 Benazepril HCl (Lotensin) 10 mg DAILY PO Last administered on 06/07/17 09:01; Admin Dose 10 MG; Start 06/05/17 at 09:00 Clonidine (Catapres) 0.2 mg Q6H PRN PO SBP ABOVE 170 Last administered on 20:57; Admin Dose 0.2 MG; Start 06/05/17 at 01:30 Acetaminophen/ Hydrocodone Bitart ([place] (5/325)) 1 tab Q6H PRN PO PAIN; Start 06/05/17 at 01:30 Diagnostic Test (Pha) (Accu-Chek) 1 ea 02 XX Last administered on 06/07/17 01: 41; Admin Dose 1 EA; Start 06/05/17 at 02:00 Diagnostic Test (Pha) (Accu-Chek) 1 ea 02 XX Last administered on 06/06/17 02: 50; Admin Dose 1 EA; Start 06/05/17 at 02:00 Miscellaneous Information 1 ea NOTE XX ; Start 06/05/17 at 03:30 Glucose (Glutose) 15 gm Q15M PRN PO DECREASED GLUCOSE; Start 06/05/17 at 03:30 Glucose (Glutose) 22.5 gm Q15M PRN PO DECREASED GLUCOSE; Start 06/05/17 at 03: 30 Dextrose (D50w Syringe) 25 ml Q15M PRN IV DECREASED GLUCOSE; Start 06/05/17 at 03:30 Dextrose (D50w Syringe) 50 ml Q15M PRN IV DECREASED GLUCOSE; Start 06/05/17 at 03:30 Glucagon (Glucagen) 1 mg Q15M PRN IM DECREASED GLUCOSE; Start 06/05/17 at 03:30 Glucose (Glutose) 15 gm Q15M PRN BUCCAL DECREASED GLUCOSE; Start 06/05/17 at 03 :30 Miscellaneous Information Insulin Degludec (Murray... Q8H XX ; Start 06/06/17 at 08:00 Ertapenem/Sodium Chloride (Invanz/NS) 100 ml @ 200 mls/hr Q24H IVPB Last administered on 06/06/17t 14:57; Admin Dose 200 MLS/HR; Start 06/06/17 at 14:00 SAMIA SIMONS NP Jun 07, 2017 13:44
[2017-06-07 14:00] VITALS: BP 141/66; RESP 14
[2017-06-07] MEDS: ERTAPENEM SODIUM 1 GM in SOD CHLORIDE 0.9% 100 ML IVPB SCH (14:07)
--- NOTE | 2017-06-07 19:17 | PN ---
Date/Time of Note Date/Time of Note DATE: 06/07/17 TIME: 19:13 Assessment/Plan VTE Prophylaxis VTE Prophylaxis Intervention: other Lines/Catheters [facility] [place] [facility] Urinary Cath still in place: No Assessment/Plan Chief Complaint/Hosp Course Recurrent urinary tract infections, high postvoid residual, diabetes. Patient started on Urecholine to help her empty her bladder better and as she does empty the bladder better the risk for recurrent infection should be much less Problems: Subjective 24 Hr Interval Summary Free Text/Dictation The patient is an 86-year-old female who has had recurrent urinary tract infections. She is diabetic. Prior CT scan of the abdomen and pelvis did not show any kidney stones. The patient underwent in and out catheterization after she voided yesterday to check her postvoid residual the postvoid residual was 350 mL. I did discuss that with Dr. Dwyer and the patient was started on Urecholine 10 mg 3 times a day with the hope that would help her empty her bladder better Exam/Review of Systems Vital Signs Vitals Vital Signs Date Time Temp Pulse Resp B/P Pulse Ox O2 Delivery O2 Flow Rate FiO2 06/07/17 14:00 98.8 62 14 141/66 97 06/05/17 01:31 Room Air Intake and Output 06/06/17 06/06/17 06/07/17 15:00 23:00 07:00 Intake Total 1660 ml 700 ml Output Total 400 ml Balance -400 ml 1660 ml 700 ml Exam Constitutional: alert Psych: no complaints Head: normocephalic Respiratory: normal air movement Gastrointestinal: soft Results Result Diagram: 06/06/17 0500 06/06/17 0500 Results 24 hrs Laboratory Tests Test 06/06/17 21:26 06/07/17 01:27 06/07/17 08:22 06/07/17 12:14 Bedside Glucose 247 H 172 164 306 H Test 06/07/17 17:46 Bedside Glucose 213 Medications Medications Current Medications Amlodipine Besylate (Norvasc) 10 mg DAILY PO Last administered on 06/07/17 08: 56; Admin Dose 10 MG; Start 06/05/17 at 09:00 Aspirin (Aspirin) 81 mg DAILY PO Last administered on 06/07/17 09:01; Admin Dose 81 MG; Start 06/05/17 at 09:00 Cholecalciferol (Vitamin D) 5,000 unit DAILY PO Last administered on 06/07/17 08:59; Admin Dose 5,000 UNIT; Start 06/05/17 at 09:00 Duloxetine HCl (Cymbalta) 30 mg DAILY PO Last administered on 06/07/17 09:01; Admin Dose 30 MG; Start 06/05/17 at 09:00 Furosemide (Lasix) 40 mg DAILY PO Last administered on 06/07/17 08:59; Admin Dose 40 MG; Start 06/05/17 at 09:00 Gabapentin (Neurontin) 100 mg TID PO Last administered on 06/07/17 14:07; Admin Dose 100 MG; Start 06/05/17 at 09:00 Lactulose (Enulose) 20 gm TID PO Last administered on 06/07/17 14:07; Admin Dose 20 GM; Start 06/05/17 at 09:00 Methenamine (Hiprex) 1 gm DAILY PO Last administered on 06/07/17 08:57; Admin Dose 1 GM; Start 06/05/17 at 09:00 Metolazone (Zaroxolyn) 2.5 mg DAILY PO Last administered on 06/07/17 09:00; Admin Dose 2.5 MG; Start 06/05/17 at 09:00 Miscellaneous Medication (Bystolic) 5 mg DAILY PO Last administered on 09:01; Admin Dose 5 MG; Start 06/05/17 at 09:00 Nitroglycerin (Nitroglycerin (Sl Tab) 0.4 Mg) 0.4 tab [id number] PRN SL CHEST PAIN; Start 06/05/17 at 01:30 Potassium Chloride (Klor-Con 20) 40 meq BID PO Last administered on 06/07/17 08:57; Admin Dose 40 MEQ; Start 06/05/17 at 09:00 Calcium/Vitamin D (Oyster Shell/ Vit-D (500/200)) 1 tab TID PO Last administered on 06/07/17 14:07; Admin Dose 1 TAB; Start 06/05/17 at 09:00 Miscellaneous Information 46 unit QHS SQ ; Start 06/05/17 at 21:00; Status UNV Non-Formulary Medication 1 ea QAM SC ; Start 06/05/17 at 09:00 Non-Formulary Medication 1 ea DAILY PO Last administered on 06/07/17 10:30; Admin Dose 1 EA; Start 06/07/17 at 09:00 Non-Formulary Medication 1 ea DAILY PO Last administered on 06/07/17 10:39; Admin Dose 1 EA; Start 06/05/17 at 09:00 Pantoprazole (Protonix Tab) 40 mg DAILY@06 PO Last administered on 06/07/17 05 :16; Admin Dose 40 MG; Start 06/05/17 at 06:00 Alprazolam (Xanax) 0.25 mg Q8H PRN PO ANXIETY; Start 06/05/17 at 01:30 Benazepril HCl (Lotensin) 10 mg DAILY PO Last administered on 06/07/17 09:01; Admin Dose 10 MG; Start 06/05/17 at 09:00 Clonidine (Catapres) 0.2 mg Q6H PRN PO SBP ABOVE 170 Last administered on 20:57; Admin Dose 0.2 MG; Start 06/05/17 at 01:30 Acetaminophen/ Hydrocodone Bitart ([place] (5/325)) 1 tab Q6H PRN PO PAIN; Start 06/05/17 at 01:30 Diagnostic Test (Pha) (Accu-Chek) 1 ea 02 XX Last administered on 06/07/17 01: 41; Admin Dose 1 EA; Start 06/05/17 at 02:00 Diagnostic Test (Pha) (Accu-Chek) 1 ea 02 XX Last administered on 06/06/17 02: 50; Admin Dose 1 EA; Start 06/05/17 at 02:00 Miscellaneous Information 1 ea NOTE XX ; Start 06/05/17 at 03:30 Glucose (Glutose) 15 gm Q15M PRN PO DECREASED GLUCOSE; Start 06/05/17 at 03:30 Glucose (Glutose) 22.5 gm Q15M PRN PO DECREASED GLUCOSE; Start 06/05/17 at 03: 30 Dextrose (D50w Syringe) 25 ml Q15M PRN IV DECREASED GLUCOSE; Start 06/05/17 at 03:30 Dextrose (D50w Syringe) 50 ml Q15M PRN IV DECREASED GLUCOSE; Start 06/05/17 at 03:30 Glucagon (Glucagen) 1 mg Q15M PRN IM DECREASED GLUCOSE; Start 06/05/17 at 03:30 Glucose (Glutose) 15 gm Q15M PRN BUCCAL DECREASED GLUCOSE; Start 06/05/17 at 03 :30 Miscellaneous Information Insulin Degludec ([place]ray... Q8H XX ; Start 06/06/17 at 08:00 Ertapenem/Sodium Chloride (Invanz/NS) 100 ml @ 200 mls/hr Q24H IVPB Last administered on 06/07/17t 14:07; Admin Dose 200 MLS/HR; Start 06/06/17 at 14:00 SHAREE ALCALA MD Jun 07, 2017 19:17
[2017-06-07 19:23] VITALS: BP 161/67; RESP 20
[2017-06-07] MEDS: BETHANECHOL 10 MG TAB PO SCH (20:58)
[2017-06-07] MEDS ORDERED: TRESIBA 200 UNIT/ML SC SCH ×2 (21:13→21:31)
[2017-06-08 02:00] VITALS: BP 151/65; RESP 20
[2017-06-08] MEDS: ACCU-CHEK XX SCH (02:00)
[2017-06-08] MEDS: PANTOPRAZOLE (EC) 40 MG TAB PO SCH (05:52)
[2017-06-08] MEDS ORDERED: INSULIN GLARGINE [LANtus] 3 ML PEN SC SCH (08:00)
[2017-06-08 08:10] VITALS: BP 176/70; RESP 18
[2017-06-08] MEDS: FUROSEMIDE 40 MG TAB PO SCH (08:15)
[2017-06-08] MEDS: LACTULOSE 30ML CUP PO SCH ×2 (08:15→12:07)
[2017-06-08] MEDS: POTASSIUM CHLORIDE (SR) 20 MEQ TAB PO SCH (08:15)
[2017-06-08] MEDS: CHOLECALCIFEROL 1,000 UNIT TAB PO SCH (08:15)
[2017-06-08] MEDS: BENAZEPRIL 10 MG TAB PO SCH (08:15)
[2017-06-08] MEDS: GABAPENTIN 100 MG CAP PO SCH ×2 (08:15→12:07)
[2017-06-08] MEDS: CALCIUM/VITAMIN D (500/200) TAB PO SCH ×2 (08:16→12:07)
[2017-06-08] MEDS: METHENAMINE 1 GM TAB PO SCH (08:16)
[2017-06-08] MEDS: NEBIVOLOL 5 MG TAB PO SCH (08:16)
[2017-06-08] MEDS: AMLODIPINE 10 MG TAB PO SCH (08:16)
[2017-06-08] MEDS: METOLAZONE 2.5 MG TAB PO SCH (08:16)
[2017-06-08] MEDS: ASPIRIN 81 MG TAB PO SCH (08:16)
[2017-06-08] MEDS: BETHANECHOL 10 MG TAB PO SCH ×2 (08:18→12:07)
[2017-06-08] MEDS: DULOXETINE 30 MG CAP DR PO SCH (08:25)
[2017-06-08] MEDS: INSULIN ASPART [NOVOLOG] 3 ML PEN SC SCH ×2 (08:29→12:13)
--- NOTE | 2017-06-08 11:31 | DS ---
DATE OF ADMISSION: 06/04/2017 DATE OF DISCHARGE: HOSPITAL COURSE: This is an 85-year-old female with a past medical history of diabetes, hypertension, cholelithiasis, morbid obesity, cirrhosis, history of chronic left ankle fracture. History of venous insufficiency who presented to [facility] with altered mental status. The patient in the emergency room was found to have a urinary tract infection. The patient was started on antibiotic therapy and admitted to [facility] for evaluation. In terms of the patient's UTI, she was seen by Dr. Blair and started on IV antibiotics and has 5 days of Invanz. The patient will continue 5 more days of all Macrobid in an outpatient setting. The patient's urine culture grew out ESBL E. coli. Additionally, the patient was seen by urologist who recommend Urecholine to help patient minimize her postvoid residuals. The patient's other medical problems include hypertension, diabetes, which have been stable during the hospital course. Currently at this time, the patient will be discharged home and will follow up with her primary care physician Dr. Ochoa in 1 week's time. The patient will continue home therapy and home antibiotics. FINAL DIAGNOSES: 1. Acute encephalopathy, etiology is toxic metabolic. 2. Urinary tract infection, improving. 3. Urinary retention. The patient was seen by Urology. Will continue Urecholine in an outpatient setting. 4. Hypertension. 5. Cirrhosis. 6. Morbid obesity. 7. Chronic venous insufficiency. 8. Chronic hypertension. 9. Sinus neuropathy. 10. Depression. 11. Anemia. 12. Gastrointestinal, deep vein thrombosis prophylaxis. At the time of discharge the patient is stable in no acute distress. Please note, I spent over 40 minutes time preparing patient's discharge. DISCHARGE MEDICATIONS: See reconciliation list. Dictated By: Alex Ochoa DO /venkat/manny /Document#: [id number]
--- NOTE | 2017-06-08 12:40 | CONS ---
Date/Time of Note Date/Time of Note DATE: 06/08/17 TIME: 12:39 Assessment/Plan Assessment/Plan Chief Complaint/Hosp Course SUBJECTIVE DATA: Awake, looks comfortable, denies pain Temperature 98.9 pulse 62 respirations 18 blood pressure 176/70 saturation 97% MICROBIOLOGY: Urine culture grew E coli, ESBL. ANTIMICROBIALS: Invanz PHYSICAL EXAMINATION: GENERAL: This is an obese, well developed, elderly woman, who is alert, in no distress. HEENT: Head atraumatic, normocephalic. Sclerae anicteric. Buccal mucosa pink. NECK: Obese. CHEST: Chest rise symmetrical. Breath sounds diminished at the bases. HEART: S1, S2. ABDOMEN: Soft, bowel sounds present. EXTREMITIES: Without cyanosis. ASSESSMENT: 1. Resolving encephalopathy. 2. Escherichia coli extended-spectrum beta-lactamase urinary tract infection. 3. Obesity. 4. Diabetes. 5. Liver cirrhosis. PLAN: The patient remains stable. Wants to go home, anticipate discharge on MicroBid for 5 more days Discussed with pharmacy, discussed with Dr. Ochoa Problems: Consultation Date/Type/Reason Admit Date/Time Jun 04, 2017 at 19:07 Type of Consultation: ID Exam/Review of Systems Vital Signs Vitals Vital Signs Date Time Temp Pulse Resp B/P Pulse Ox O2 Delivery O2 Flow Rate FiO2 06/08/17 08:10 98.9 62 18 176/70 97 06/05/17 01:31 Room Air Intake and Output 06/07/17 06/07/17 06/08/17 15:00 23:00 07:00 Intake Total 1060 ml Balance 1060 ml Results Result Diagram: 06/06/17 0500 06/06/17 0500 Results 24 hrs Laboratory Tests Test 06/07/17 17:46 06/07/17 21:38 06/08/17 02:15 06/08/17 08:14 Bedside Glucose 213 272 H 289 H 173 Test 06/08/17 12:09 Bedside Glucose 313 H Medications Medications Current Medications Amlodipine Besylate (Norvasc) 10 mg DAILY PO Last administered on 06/08/17 08: 16; Admin Dose 10 MG; Start 06/05/17 at 09:00 Aspirin (Aspirin) 81 mg DAILY PO Last administered on 06/08/17 08:16; Admin Dose 81 MG; Start 06/05/17 at 09:00 Cholecalciferol (Vitamin D) 5,000 unit DAILY PO Last administered on 06/08/17 08:15; Admin Dose 5,000 UNIT; Start 06/05/17 at 09:00 Duloxetine HCl (Cymbalta) 30 mg DAILY PO Last administered on 06/08/17 08:25; Admin Dose 30 MG; Start 06/05/17 at 09:00 Furosemide (Lasix) 40 mg DAILY PO Last administered on 06/08/17 08:15; Admin Dose 40 MG; Start 06/05/17 at 09:00 Gabapentin (Neurontin) 100 mg TID PO Last administered on 06/08/17 12:07; Admin Dose 100 MG; Start 06/05/17 at 09:00 Lactulose (Enulose) 20 gm TID PO Last administered on 06/08/17 12:07; Admin Dose 20 GM; Start 06/05/17 at 09:00 Methenamine (Hiprex) 1 gm DAILY PO Last administered on 06/08/17 08:16; Admin Dose 1 GM; Start 06/05/17 at 09:00 Metolazone (Zaroxolyn) 2.5 mg DAILY PO Last administered on 06/08/17 08:16; Admin Dose 2.5 MG; Start 06/05/17 at 09:00 Miscellaneous Medication (Bystolic) 5 mg DAILY PO Last administered on 08:16; Admin Dose 5 MG; Start 06/05/17 at 09:00 Nitroglycerin (Nitroglycerin (Sl Tab) 0.4 Mg) 0.4 tab [id number] PRN SL CHEST PAIN; Start 06/05/17 at 01:30 Potassium Chloride (Klor-Con 20) 40 meq BID PO Last administered on 06/08/17 08:15; Admin Dose 40 MEQ; Start 06/05/17 at 09:00 Calcium/Vitamin D (Oyster Shell/ Vit-D (500/200)) 1 tab TID PO Last administered on 06/08/17 12:07; Admin Dose 1 TAB; Start 06/05/17 at 09:00 Non-Formulary Medication 1 ea QAM SC Last administered on 06/08/17 08:17; Admin Dose 1 EA; Start 06/05/17 at 09:00 Non-Formulary Medication 1 ea DAILY PO Last administered on 06/08/17 08:17; Admin Dose 1 EA; Start 06/07/17 at 09:00 Non-Formulary Medication 1 ea DAILY PO Last administered on 06/08/17 08:17; Admin Dose 1 EA; Start 06/05/17 at 09:00 Pantoprazole (Protonix Tab) 40 mg DAILY@06 PO Last administered on 06/08/17 05 :52; Admin Dose 40 MG; Start 06/05/17 at 06:00 Alprazolam (Xanax) 0.25 mg Q8H PRN PO ANXIETY; Start 06/05/17 at 01:30 Benazepril HCl (Lotensin) 10 mg DAILY PO Last administered on 06/08/17 08:15; Admin Dose 10 MG; Start 06/05/17 at 09:00 Clonidine (Catapres) 0.2 mg Q6H PRN PO SBP ABOVE 170 Last administered on 20:57; Admin Dose 0.2 MG; Start 06/05/17 at 01:30 Acetaminophen/ Hydrocodone Bitart ([place] (5/325)) 1 tab Q6H PRN PO PAIN; Start 06/05/17 at 01:30 Diagnostic Test (Pha) (Accu-Chek) 1 ea 02 XX Last administered on 06/06/17 02: 50; Admin Dose 1 EA; Start 06/05/17 at 02:00 Miscellaneous Information 1 ea NOTE XX ; Start 06/05/17 at 03:30 Glucose (Glutose) 15 gm Q15M PRN PO DECREASED GLUCOSE; Start 06/05/17 at 03:30 Glucose (Glutose) 22.5 gm Q15M PRN PO DECREASED GLUCOSE; Start 06/05/17 at 03: 30 Dextrose (D50w Syringe) 25 ml Q15M PRN IV DECREASED GLUCOSE; Start 06/05/17 at 03:30 Dextrose (D50w Syringe) 50 ml Q15M PRN IV DECREASED GLUCOSE; Start 06/05/17 at 03:30 Glucagon (Glucagen) 1 mg Q15M PRN IM DECREASED GLUCOSE; Start 06/05/17 at 03:30 Glucose 15 gm 15 gm Q15M PRN BUCCAL DECREASED GLUCOSE; Start 06/05/17 at 03:30 Ertapenem/Sodium Chloride (Invanz/NS) 100 ml @ 200 mls/hr Q24H IVPB Last administered on 06/07/17 14:07; Admin Dose 200 MLS/HR; Start 06/06/17 at 14:00 Bethanechol Chloride (Urecholine) 10 mg TID PO Last administered on 06/08/17 12:07; Admin Dose 10 MG; Start 06/07/17 at 21:00 Patient Own Medication 1 ea QHS SC Last administered on 06/07/17 21:53; Admin Dose 1 EA; Start 06/07/17 at 21:31 SAMIA SIMONS SLIP FILLER Jun 08, 2017 12:40
[2017-06-08] MEDS: ERTAPENEM SODIUM 1 GM in SOD CHLORIDE 0.9% 100 ML IVPB SCH (14:10)
[2017-06-08 15:15] VITALS: BP 176/72; RESP 19
[2017-06-08] MEDS ORDERED: TRESIBA 200 UNIT/ML SC SCH (21:00)
== END 2017-06-08 16:15 | disposition home or self-care (01) | DRG 689 ==
LOC: E/R 13:04 → MS2 19:07
PROVIDERS: ADMIT Internal Medicine; ATTEND Internal Medicine
DX: N39.0 Urinary tract infection, site not specified (principal); G92 Toxic encephalopathy; E11.8 Type 2 diabetes mellitus with unspecified complications; E83.42 Hypomagnesemia; K72.90 Hepatic failure, unspecified without coma; B96.20 Unspecified Escherichia coli [E. coli] as the cause of diseases classified elsewhere; E11.9 Type 2 diabetes mellitus without complications; I10 Essential (primary) hypertension; F32.9 Major depressive disorder, single episode, unspecified; R33.9 Retention of urine, unspecified; Z16.12 Extended spectrum beta lactamase (ESBL) resistance; Z74.01 Bed confinement status
CPT/HCPCS: 36415; 70450; 71010; 80048; 80053; 81001; 82140; 82962; 83605; 83735; 84100; 84484; 85025; 85610; 85730; 87040; 87086; 93005; 96374; 96375; A4310; J0692; J1335; J1815; J3370; J3475; J7030; J7050

== ENCOUNTER → 2017-10-04 | Outpatient (CLI) | END | disposition home or self-care (01) ==

== ENCOUNTER 2018-01-03 13:11 | Inpatient (IN) | END 2018-01-08 17:00 | DRG 481 ==

== ENCOUNTER 2018-01-16 17:29 | Inpatient (IN) | END 2018-01-20 15:00 | disposition home or self-care (01) | DRG 871 ==

== ENCOUNTER 2018-05-11 01:17 | Inpatient (IN) | END 2018-05-29 18:36 | DRG 291 ==

== ENCOUNTER 2018-06-16 20:23 | Inpatient (IN) | END 2018-06-27 11:00 | disposition home or self-care (01) | DRG 871 ==